=== PATIENT | female | born 1940 | race Two or more races ===

== ENCOUNTER 2022-03-05 14:50 | Inpatient (IN) | payer MEDICARE, OTHER ==
[~2022-03-05] VITALS: Ht 160 cm; Wt 82.1 kg
--- NOTE | 2022-03-05 15:15 | NUR ---
BIBFAMILY C/O SUBSTERNAL CHEST PAIN 03/08, NON RADIATING STARTED THIS MORNING. AMBULATORY, PLACED ON BED, AAOX4, BREATHING EVEN AND UNLABORED. ATTACHED TO MONITOR SINUS RHYTHYM MT-81, BP-135/56, SATURATING AT 98%RA.
--- NOTE | 2022-03-05 15:20 | NUR ---
SEEN AND EXAMINED BY DR EILAS
--- NOTE | 2022-03-05 15:36 | NUR ---
MOVE SHEET SUBMITTED.
--- NOTE | 2022-03-05 15:50 | NUR ---
SWAB FOR COVID19 SENT TO LAB
--- NOTE | 2022-03-05 15:56 | NUR ---
PROCUREMENT COORDINATOR AT BED SIDE
[2022-03-05] MEDS ORDERED: NITROGLYCERIN PACKET 1 GM PACKET TD ONE (16:00)
[2022-03-05] MEDS ORDERED: MORPHINE SULFATE INJ 2 MG/ML DISP.SYRIN IV ONE ×2 (16:00→18:00)
[2022-03-05] MEDS ORDERED: ONDANSETRON HCL/PF 4 MG/2 ML VIAL IVP ONE (16:00)
[2022-03-05] MEDS ORDERED: ONDANSETRON HCL/PF 4 MG/2 ML VIAL ONE (16:10)
[2022-03-05] MEDS ORDERED: MORPHINE SULFATE INJ 4 MG/ML DISP.SYRIN ONE ×2 (16:10→17:59)
[2022-03-05] MEDS ORDERED: NITROGLYCERIN PACKET 1 GM PACKET ONE (16:11)
[2022-03-05] MEDS ORDERED: SOLI5TAB7 PO (16:20)
[2022-03-05] MEDS ORDERED: SERT50TA12 PO (16:20)
[2022-03-05] MEDS ORDERED: MELO-107 PO (16:20)
[2022-03-05] MEDS ORDERED: OLME1TAB19 PO (16:20)
[2022-03-05] MEDS ORDERED: METF-867 PO (16:20)
[2022-03-05] MEDS ORDERED: ROPI0.255 PO (16:20)
[2022-03-05] MEDS ORDERED: TRAM50TA2 PO (16:20)
[2022-03-05] MEDS ORDERED: METO-357 PO (16:20)
[2022-03-05] MEDS ORDERED: OMEP1CAP24 PO (16:20)
[2022-03-05] MEDS ORDERED: CLON0.5T4 PO (16:20)
[2022-03-05 16:26] LABS: BASOPHILS % (AUTO) 0.5 % (0.0-2.0); EOSINOPHILS % (AUTO) 0.9 % (0.0-6.0); HEMATOCRIT 36 % (33-45); HEMOGLOBIN 12.4 g/dL (11.5-14.8); LYMPHOCYTES # (AUTO) 1.3 K/uL (0.8-4.8); LYMPHOCYTES % (AUTO) 16.1 % (20.0-44.0); MEAN CORPUSCULAR HGB CONC 35 g/dl (31.0-36.0); MEAN CORPUSCULAR VOLUME 88 fL (82-100); MONOCYTES # (AUTO) 0.6 K/uL (0.1-1.30); MONOCYTES % (AUTO) 8.2 % (2.0-12.0); NEUTROPHILS # (AUTO) 5.8 K/uL (1.8-8.9); NEUTROPHILS % (AUTO) 74.3 % (43.0-81.0); PLATELET COUNT (AUTO) 274 K/uL (150-450); WHITE BLOOD COUNT (AUTO) 7.8 K/uL (4.3-11.0)
[2022-03-05 16:55] LABS: D-DIMER 0.43 mg/L(FEU (0.17-0.50)
[2022-03-05] MEDS ORDERED: AZITHROMYCIN 500 MG in IV D5W 250 ML IV ONE (17:00)
[2022-03-05] MEDS ORDERED: CEFTRIAXONE 1GM BAG (ER ONLY) 50 ML IV ONE (17:00)
[2022-03-05 17:17] LABS: CALCIUM, SERUM 8.8 mg/dL (8.5-10.1); CARBON DIOXIDE 22 mmol/L (21-32); CHLORIDE 86 mmol/L (98-107); GLUCOSE 104 mg/dL (74-106); POTASSIUM 3.3 mmol/L (3.5-5.1); UREA NITROGEN, BLOOD 13 mg/dL (7-18)
[2022-03-05 17:23] LABS: SODIUM SERUM 119 mmol/L (136-145)
--- NOTE | 2022-03-05 17:23 | NUR ---
DR ELIAS MADE AWARE OF NA LEVEL 119
--- NOTE | 2022-03-05 17:30 | NUR ---
PRO CALCITONIN 27.68 DR ELIAS MADE AWARE
[2022-03-05] MEDS ORDERED: IV NS 0.9% 1,000 ML BAG IV ONE (18:00)
[2022-03-05] MEDS ORDERED: ACETAMINOPHEN 325 MG TABLET PO PRN (20:00)
[2022-03-05] MEDS ORDERED: DEXTROSE 50%-WATER 50 ML DISP.SYRIN IV PRN (20:00)
[2022-03-05] MEDS ORDERED: ALBUTEROL FS 2.5 MG/0.5 ML VIAL.NEB NEB PRN (20:00)
[2022-03-05] MEDS ORDERED: clonazePAM 0.5 MG TABLET PO PRN (20:00)
[2022-03-05] MEDS ORDERED: AZITHROMYCIN 500 MG in IV D5W 250 ML IV SCH (20:00)
[2022-03-05] MEDS ORDERED: hydrALAZINE HCL IV 20 MG VIAL IV PRN (20:00)
[2022-03-05] MEDS ORDERED: MORPHINE SULFATE INJ 2 MG/ML DISP.SYRIN IV PRN (20:00)
[2022-03-05] MEDS ORDERED: ONDANSETRON HCL/PF 4 MG/2 ML VIAL IVP PRN (20:00)
[2022-03-05] MEDS ORDERED: IV NS 0.9% 1,000 ML IV SCH (20:00)
[2022-03-05 20:18] LABS: BILIRUBIN,DIRECT 0.1 mg/dL (0.0-0.2); BILIRUBIN,TOTAL 0.4 mg/dL (0.2-1.0)
[2022-03-05 21:23] LABS: BILIRUBIN,URINE NEGATIVE (NEGATIVE); COLOR,URINE YELLOW (YELLOW); LEUKOCYTE ESTERASE ,URINE NEGATIVE (NEGATIVE); NITRITE, URINE NEGATIVE (NEGATIVE); PROTEIN,URINE NEGATIVE (NEGATIVE); UGLUCOSE NEGATIVE (NEGATIVE); UROBILINOGEN,URINE 0.2 EU/dL (0.2)
[2022-03-05 21:35] LABS: BACTERIA,URINE None seen /HPF (None Seen); RBC,URINE 0-2 /HPF (0-2); SQUAMOUS EPITHELIAL CELL,UR 0-2 /HPF (None Seen); WBC,URINE 0-2 /HPF (0-3)
--- NOTE | 2022-03-05 22:02 | NUR ---
REPORT GIVEN TO GILBERTO RN ROOM 114-2 FOR JUANCARLOS
[2022-03-05 22:20] VITALS: BP 125/73
--- NOTE | 2022-03-05 22:20 | NUR ---
COSMETOLOGY PROFESSOR NOTES, RECEIVED 82 Y O FEMALE FROM ER DEPARTMENT, PATIENT AWAKE A/OX4 ABLE TO VERBALIZE NEEDS AND CONCERNS, UNDER MEDICAL SERVICES OF DR JACK WITH ADMITTING DX PNA/HYPONATREMIA, PATIENT ATTACHED TO TELE MONITOR AND SHOWS NSR WITH HR 70S ATT THIS TIME, PATIENT AT ROOM AIR WITH O2>97%, NO SOB/ACUTE DISTRESS NOTED, IV IN RIGHT AC LEAKING WILL TRY TO INSERT A NEW LINE, AFEBRILE, SKIN INTACT, ONLY LEFT UNDER BREAST REDNESS, BED BATH PROVIDED UPON ADMISSION, BED LOCKED AND LOWEST POSITION, CALL LIGHT W/I REACH, WILL CONTINUE TO MONITOR CLOSELY, VS 125/73, 98/.0, 77, 97%, 18.
[2022-03-05] MEDS: ropiniROLE 0.5 MG TABLET PO SCH (22:39)
[2022-03-05] MEDS: POTASSIUM CHLORIDE 10 MEQ/50 ML PREMIXED IVPB FOR PERIPHERAL LINE IV ONE ×2 (22:39→23:34)
[2022-03-05] MEDS: HEPARIN SODIUM, PORCINE 5000 UNITS/1 ML VIAL SQ SCH (22:40)
[2022-03-05] MEDS: TRAMADOL HCL 50 MG TABLET PO PRN (22:41)
[2022-03-05] MEDS: IV NS 0.9% 1,000 ML IV SCH (22:43)
[2022-03-05] MEDS: BLOOD SUGAR DIAGNOSTIC 1 EACH STRIP IN SCH (23:07)
[2022-03-05] MEDS: INSULIN REGULAR, HUMAN 100 UNIT/ML 3 ML VIAL SQ PRN (23:08)
--- NOTE | 2022-03-05 23:20 | NUR ---
2320 Right AC peripheral IV noted leaking, patient with c/o pain at site. Flushed IV with resistance. Attempted to insert new IV access twice but unsuccessful due to poor IV access. Dr. Serna made aware with order for midline. Order noted.
--- NOTE | 2022-03-05 23:36 | NUR ---
INFORMED DR VILLEGAS THAT UNABLE TO START IV ACCESS IN PATIENT AND MIDLINE WILL BE INSERTED TILL AM, AND REQUEST TO CHANGE POTASSIUM TO PO, PER MD TO GIVE 20MEQ TIMES ONE, ORDER NOTED AND CARRIED OUT.
[2022-03-06] VITALS: BP 117/68
[2022-03-06] MEDS ORDERED: IPRATROPIUM/ALBUTEROL INHALER IH SCH
[2022-03-06] MEDS ORDERED: POTASSIUM CHLORIDE 20 MEQ TAB.PRT.SR PO ONE
[2022-03-06 04:00] VITALS: BP 111/60
[2022-03-06 06:36] LABS: BASOPHILS % (AUTO) 0.5 % (0.0-2.0); EOSINOPHILS % (AUTO) 1.4 % (0.0-6.0); HEMATOCRIT 33 % (33-45); HEMOGLOBIN 11.3 g/dL (11.5-14.8); LYMPHOCYTES # (AUTO) 1.7 K/uL (0.8-4.8); LYMPHOCYTES % (AUTO) 24.3 % (20.0-44.0); MEAN CORPUSCULAR HGB CONC 35 g/dl (31.0-36.0); MEAN CORPUSCULAR VOLUME 89 fL (82-100); MONOCYTES # (AUTO) 0.9 K/uL (0.1-1.30); MONOCYTES % (AUTO) 12.5 % (2.0-12.0); NEUTROPHILS # (AUTO) 4.4 K/uL (1.8-8.9); NEUTROPHILS % (AUTO) 61.3 % (43.0-81.0); PLATELET COUNT (AUTO) 231 K/uL (150-450); RED BLOOD CELL COUNT(AUTO) 3.64 MIL/uL (4.0-5.2); WHITE BLOOD COUNT (AUTO) 7.2 K/uL (4.3-11.0)
--- NOTE | 2022-03-06 06:43 | NUR ---
RN CLOSING NOTES: PATIENT IN BED A/O X4, AT ROOM AIR, REMAINED STABLE DURING THE NIGHT, WILL HAVE MIDLINE INSERTION TODAY, NO IV ACCESS AT THIS TIME, MD AWARE, BED LOCKED AND IN LOWEST POSITION, CALL LIGHT WITHIN REACH. ALL SAFETY MEASURES IN PLACE, WILL ENDORSE TO NEXT SHIFT NURSE FOR CONTINUITY OF CARE.
[2022-03-06 07:07] LABS: ALBUMIN 3.3 g/dL (3.4-5.0); BILIRUBIN,TOTAL 0.5 mg/dL (0.2-1.0); CALCIUM, SERUM 8.8 mg/dL (8.5-10.1); CREATININE 0.9 mg/dL (0.6-1.3); MAGNESIUM 1.8 mg/dL (1.8-2.4); PHOSPHORUS 3.2 mg/dL (2.5-4.9); POTASSIUM 3.9 mmol/L (3.5-5.1); TOTAL PROTEIN, SERUM 6.3 g/dL (6.4-8.2)
--- NOTE | 2022-03-06 07:33 | NUR ---
RN OPENING NOTES: RECEIVED PATIENT IN BED, AWAKE, ALERT AND ORIENTED X 4. BREATHING EVEN AND UNLABORED. NO SOB NOTED. ON SINUS RHYTHM PER TELE MONITOR WITH HR OF 75. NO IV FLUIDS INFUSING AT THE TIME. PER TEST DESIGNER NURSE, IV LINE PAINFUL UPON INFUSION AND MADE MULTIPLE ATTEMPTS FOR IV REINSERTION. AWAITING MIDLINE INSERTION. ALL SAFETY MEASURES IN PLACE. BED LOCKED AND IN LOWEST POSITION. CALL LIGHT WITHIN REACH. WILL CONTINUE TO MONITOR
[2022-03-06 08:00] VITALS: BP 133/64
[2022-03-06] MEDS: BLOOD SUGAR DIAGNOSTIC 1 EACH STRIP IN SCH ×4 (08:08→22:28)
[2022-03-06] MEDS: INSULIN REGULAR, HUMAN 100 UNIT/ML 3 ML VIAL SQ PRN ×2 (08:18→13:05)
[2022-03-06] MEDS: SERTRALINE HCL 50 MG TABLET PO SCH (08:26)
[2022-03-06] MEDS: LOSARTAN POTASSIUM 50 MG TABLET PO SCH (08:26)
[2022-03-06] MEDS: HEPARIN SODIUM, PORCINE 5000 UNITS/1 ML VIAL SQ SCH ×2 (08:27→22:15)
[2022-03-06] MEDS: HYDROCHLOROTHIAZIDE 25 MG TABLET PO SCH (08:27)
[2022-03-06] MEDS: DOCUSATE SODIUM LIQ 100 MG/10 ML UDC PO SCH ×2 (08:28→16:42)
[2022-03-06] MEDS: POLYETHYLENE GLYCOL 3350 17 GM POWD.PACK PO SCH (08:28)
[2022-03-06] MEDS: METOPROLOL SUCCINATE 50 MG TAB.SR.24H PO SCH ×2 (08:28→16:42)
--- NOTE | 2022-03-06 10:00 | NUR ---
NO AVAILABLE MIDLINE NURSE AT THE MOMENT TO INSERT MIDLINE FOR THE PATIENT. CARDIAC UNIT NURSE MARTA ROUSE CAME BY AND INSERTED IV ON LEFT ANTECUBITAL,# 20, FLUSHING WELL.
[2022-03-06] MEDS: CEFTRIAXONE 1 G in IV D5W 50 ML IV SCH (10:10)
[2022-03-06] MEDS: AZITHROMYCIN 500 MG in IV D5W 250 ML IV SCH (10:10)
[2022-03-06] MEDS: OXYBUTYNIN CHLORIDE 5 MG TABLET PO SCH ×2 (10:29→16:41)
[2022-03-06 12:00] VITALS: BP 141/69
[2022-03-06] MEDS: TRAMADOL HCL 50 MG TABLET PO PRN (12:00)
[2022-03-06] MEDS: IV NS 0.9% 1,000 ML IV SCH (13:41)
[2022-03-06 16:00] VITALS: BP 143/79
--- NOTE | 2022-03-06 16:40 | NUR ---
PATIENT WAS NOTED TO HAVE SLIGHT SWELLING ON IV SITE ON LEFT AC, NO REDNESS NOTED, NO WARMTH, NO LEAKING NOTED. PATIENT C/O DISCOMFORT. DISCONTINUED IV IMMEDIATELY AND APPLIED COOL COMPRESS. AWAITING FOR MIDLINE INSERTION.
--- NOTE | 2022-03-06 19:15 | NUR ---
RN CLOSING NOTES: PATIENT IN BED, AWAKE, ALERT, ORIENTED X 4. NO SOB NOTED, BREATHING EVEN AND UNLABORED. MIDLINE WAS INSERTED TO THE PATIENT BY MIDLINE NURSE ON LEFT UPPER ARM GAUGE # 18. ON SR ON TELE MONITOR WITH HR OF 83. BED KEPT IN LOWEST POSITION, CALL LIGHT WITHIN REACH. WILL ENDORSE TO NEXT SHIFT NURSE FOR CONTINUATION OF CARE.
[2022-03-06 20:00] VITALS: BP 113/69
[2022-03-06] MEDS: ALBUTEROL HALF STRENGTH 1.25 MG/3 ML VIAL.NEB NEB SCH (20:03)
[2022-03-06] MEDS: IPRATROPIUM NEB FS 0.5 MG/2.5 ML AMPUL.NEB NEB SCH (20:04)
--- NOTE | 2022-03-06 21:44 | NUR ---
SHIP'S ENGINEER OPENING NOTE PT RECEIVED IN BED, AWAKE, A&O X4, MOSTLY UKRAN[place]-SPEAKING, BUT SPEAKS LITTLE NEPALI TO MAKE NEEDS KNOWN. PT ON RA WITH CURRENT O2SAT OF 97%, NO S/S OF RESP DISTRESS, NO SOB OR COUGH, NON-LABORED AND EQUAL BREATHING. PT ATTACHED TO EXTERNAL MONITOR SR WITH HR OF 74. PT HAS NO COMPLAINT OF CHEST PAIN AT THE MOMENT. YAYO MIDLINE INTACT AND PATENT, FLUSHES EASILY WITH NO RESISTANCE; HAS NS RUNNING AT 75 ML/HR. BED IN LOWEST POSITION, CALL LIGHT WITHIN REACH, SIDE RAILS UP X2. WILL CONTINUE TO MONITOR THROUGHOUT THE NIGHT.
[2022-03-06] MEDS: ropiniROLE 0.5 MG TABLET PO SCH (22:13)
--- NOTE | 2022-03-06 22:16 | NUR ---
RN NOTE PT COMPLAINS OF A 8/10 SHOULDER PAIN THAT'S DESCRIBED SHARP AND ACHING. PT ADMINISTERED MORPHINE 2 MG. WILL MONITOR FOR EFFECTIVENESS.
[2022-03-07] VITALS: BP 119/70
[2022-03-07] MEDS: IV NS 0.9% 1,000 ML IV SCH (01:09)
[2022-03-07] MEDS: ALBUTEROL HALF STRENGTH 1.25 MG/3 ML VIAL.NEB NEB SCH ×2 (01:10→07:46)
[2022-03-07] MEDS: IPRATROPIUM NEB FS 0.5 MG/2.5 ML AMPUL.NEB NEB SCH ×2 (01:10→07:46)
[2022-03-07 04:00] VITALS: BP 124/62
[2022-03-07 06:00] LABS: BASOPHILS # (AUTO) 0.1 K/uL (0.0-0.2); BASOPHILS % (AUTO) 0.9 % (0.0-2.0); EOSINOPHILS % (AUTO) 1.3 % (0.0-6.0); HEMATOCRIT 31 % (33-45); HEMOGLOBIN 11.1 g/dL (11.5-14.8); LYMPHOCYTES # (AUTO) 1.6 K/uL (0.8-4.8); LYMPHOCYTES % (AUTO) 29.7 % (20.0-44.0); MEAN CORPUSCULAR HGB CONC 35 g/dl (31.0-36.0); MEAN CORPUSCULAR VOLUME 88 fL (82-100); MONOCYTES # (AUTO) 0.7 K/uL (0.1-1.30); MONOCYTES % (AUTO) 12.5 % (2.0-12.0); NEUTROPHILS % (AUTO) 55.6 % (43.0-81.0); PLATELET COUNT (AUTO) 203 K/uL (150-450); RED BLOOD CELL COUNT(AUTO) 3.56 MIL/uL (4.0-5.2); WHITE BLOOD COUNT (AUTO) 5.4 K/uL (4.3-11.0)
--- NOTE | 2022-03-07 06:50 | NUR ---
AGENCY SALES REPRESENTATIVE CLOSING NOTE PT REMAINS IN BED, ASLEEP BUT EASILY AROUSABLE, A&O X4, SLEPT WELL THROUGHOUT THE NIGHT. REMAINS ON RA WITH O2SAT RANGING FROM 95%-97%; NO S/S OF RESP DISTRESS, NO SOB OR COUGH, NON-LABORED AND EQUAL BREATHING; APPEARS COMFORTABLE. ATTACHED TO EXTERNAL MONITOR SR WITH HR RANGING FROM 87-93. PT AMBULATORY WITH STEADY GAIT. YAYO MIDLINE INTACT AND PATENT, FLUSHES EASILY WITH NO RESISTANCE, NS RUNNING AT 75 ML/HR. BED IN LOWEST POSITION, CALL LIGHT WITHIN REACH, SIDE RAILS UP X2. WILL ENDORSE TO DAYSHIFT NURSE TO CONTINUE CARE.
[2022-03-07 07:01] LABS: ALANINE AMINOTRANSFERASE 28 U/L (12-78); ALBUMIN 3.2 g/dL (3.4-5.0); ALKALINE PHOSPHATASE 39 U/L (46-116); ASPARTATE AMINOTRANSFERASE 4 U/L (15-37); BILIRUBIN,TOTAL 0.4 mg/dL (0.2-1.0); CALCIUM, SERUM 8.7 mg/dL (8.5-10.1); CREATININE 0.8 mg/dL (0.6-1.3); GLUCOSE 114 mg/dL (74-106); MAGNESIUM 1.8 mg/dL (1.8-2.4); PHOSPHORUS 2.8 mg/dL (2.5-4.9); TOTAL PROTEIN, SERUM 6.1 g/dL (6.4-8.2); UREA NITROGEN, BLOOD 8 mg/dL (7-18)
--- NOTE | 2022-03-07 07:10 | NUR ---
RN OPENING NOTE RECEIVE PATIENT IN BED, RESTING EASILY AROUSES, ALERT/ORIENTED X4, ABLE TO MAKE NEEDS KNOWN. ON RA WITH CURRENT SATURATION OF 97%, NO S/S OF RESP DISTRESS, NO SOB OR COUGH, NON-LABORED AND EQUAL BREATHING. ON TELE MONITOR READING SR WITH HR OF 71. PATIENT HAS NO COMPLAINT OF CHEST PAIN AT THE MOMENT. YAYO MIDLINE INTACT AND PATENT INFUSING NS AT 75 ML/HR. ALL SAFETY MEASURES IN PLACE BED IN LOWEST POSITION, CALL LIGHT WITHIN REACH, SIDE RAILS UP X2. WILL CONTINUE TO MONITOR THROUGHOUT SHIFT.
[2022-03-07 07:20] LABS: CARBON DIOXIDE 27 mmol/L (21-32); CHLORIDE 97 mmol/L (98-107); POTASSIUM 3.3 mmol/L (3.5-5.1); SODIUM SERUM 133 mmol/L (136-145)
[2022-03-07] MEDS: BLOOD SUGAR DIAGNOSTIC 1 EACH STRIP IN SCH ×2 (07:59→11:47)
[2022-03-07 08:00] VITALS: BP 139/76
[2022-03-07] MEDS: OXYBUTYNIN CHLORIDE 5 MG TABLET PO SCH (08:54)
[2022-03-07] MEDS: METOPROLOL SUCCINATE 50 MG TAB.SR.24H PO SCH (08:54)
[2022-03-07] MEDS: POLYETHYLENE GLYCOL 3350 17 GM POWD.PACK PO SCH (08:54)
[2022-03-07] MEDS: CEFTRIAXONE 1 G in IV D5W 50 ML IV SCH (08:55)
[2022-03-07] MEDS: SERTRALINE HCL 50 MG TABLET PO SCH (08:55)
[2022-03-07] MEDS: DOCUSATE SODIUM LIQ 100 MG/10 ML UDC PO SCH (08:55)
[2022-03-07] MEDS: LOSARTAN POTASSIUM 50 MG TABLET PO SCH (08:55)
[2022-03-07] MEDS: HEPARIN SODIUM, PORCINE 5000 UNITS/1 ML VIAL SQ SCH (08:56)
[2022-03-07 08:59] VITALS: BP 139/76
[2022-03-07] MEDS: HYDROCHLOROTHIAZIDE 25 MG TABLET PO SCH (08:59)
[2022-03-07] MEDS ORDERED: POTASSIUM CHLORIDE 20 MEQ TAB.PRT.SR PO SCH (10:00)
[2022-03-07] MEDS: AZITHROMYCIN 500 MG in IV D5W 250 ML IV SCH (10:18)
[2022-03-07] MEDS ORDERED: LOSA50TA39 PO (11:31)
[2022-03-07] MEDS ORDERED: AZIT250T13 PO (11:31)
[2022-03-07] MEDS: INSULIN REGULAR, HUMAN 100 UNIT/ML 3 ML VIAL SQ PRN (11:50)
--- NOTE | 2022-03-07 13:10 | NUR ---
RN NOTE PATIENT DISCHARGED IN STABLE CONDITION. PATIENT AWAKE, ALERT/ORIENTED X4, ABLE TO MAKE NEEDS KNOWN. PATIENT ON ROOM AIR TOLERATING WELL. BREATHING UNLABORED. NO SOB OR ANY RESPIRATORY DISTRESS NOTED AT THE TIME. IV ACCESS REMOVED, NO BLEEDING NOTED. ALL BELONGINGS ACCOUNTED FOR AND GIVEN TO PATIENT. DISCHARGED INSTRUCTIONS GIVEN TO PATIENT. ALL DUE MEDS GIVEN ORDERED. ALL NEEDS ANTICIPATED. KEPT PATIENT CLEAN DRY AND COMFORTABLE. PATIENT WHEELED OUT OF HOSPITAL TO PRIVATE CAR. PATIENT LEFT IN STABLE CONDITION WITH DAUGHTER SYLWIA. Addendum: 03/07/22 at 1322 by PRAKASH DOWNING RN WRONG DOCUMENTATION, WRONG PATIENT.
--- NOTE | 2022-03-07 14:45 | NUR ---
RN NOTE PATIENT DISCHARGED IN STABLE CONDITION. PATIENT AWAKE, ALERT/ORIENTED X4, PATIENT ON ROOM AIR TOLERATING WELL. BREATHING UNLABORED. NO SOB OR ANY RESPIRATORY DISTRESS NOTED AT THE TIME. IV ACCESS REMOVED, NO BLEEDING NOTED. ALL BELONGINGS ACCOUNTED FOR AND GIVEN TO PATIENT. DISCHARGED INSTRUCTIONS GIVEN TO PATIENT. ALL DUE MEDS GIVEN ORDERED. ALL NEEDS ANTICIPATED. KEPT PATIENT CLEAN DRY AND COMFORTABLE. PATIENT WHEELED OUT OF UNIT AND TRANSFERRED TO CAR. PATIENT LEFT IN STABLE CONDITION WITH SISTER JAGUAR VIA PRIVATE CAR.
== END 2022-03-07 13:11 | disposition home health service (06) | DRG 194 ==
LOC: ER 14:59 → TRANSITION 20:49 → TELE1 20:58
PROVIDERS: ADMIT Internal Medicine; ATTEND Nurse Practitioner Acute Care
PROC: 05HB33Z Insertion of Infusion Device into Right Basilic Vein, Percutaneous Approach (ICD-10-PCS; principal; 2022-03-06)
DX: J12.9 Viral pneumonia, unspecified (principal); E87.1 Hypo-osmolality and hyponatremia; Z20.822 Contact with and (suspected) exposure to COVID-19; E78.5 Hyperlipidemia, unspecified; I10 Essential (primary) hypertension; E11.9 Type 2 diabetes mellitus without complications; F41.9 Anxiety disorder, unspecified; Z79.84 Long term (current) use of oral hypoglycemic drugs; Z79.899 Other long term (current) drug therapy; Z86.16 Personal history of COVID-19; E87.6 Hypokalemia; R74.02 Elevation of levels of lactic acid dehydrogenase [LDH]; E66.9 Obesity, unspecified; Z68.32 Body mass index [BMI] 32.0-32.9, adult
CPT/HCPCS: 36415; 71045-TC; 80048-TC; 80053-TC; 81001; 82247-TC; 82248-TC; 82533; 82962-TC; 83605-TC; 83735-TC; 83880; 84100-TC; 84295-TC; 84300-TC; 84443-TC; 84484-TC; 85025-TC; 85378-TC; 85730-TC; 87040-TC; 87081-TC; 93307-TC; C9803; G0378; J0456; J0696; J1644; J1815; J2270; J2405; J3480; J7030; J7050; J7060